=== PATIENT | female | born 1965 | race Caucasian/White ===

== ENCOUNTER 2019-09-13 05:55 | Day surgery (SDC) | payer BC ==
[~2019-09-13] VITALS: Ht 167.6 cm; Wt 101.6 kg
[2019-09-13] MEDS ORDERED: fentaNYL CITRATE/PF 100 MCG/2 ML AMP IVP ONE (07:55)
[2019-09-13] MEDS ORDERED: PROPOFOL 200MG/ 20ML VIAL (DIPRIVAN) IV ONE (07:55)
[2019-09-13] MEDS ORDERED: KETOROLAC TROMETHAMINE 30 MG VIAL IVP ONE (07:55)
[2019-09-13] MEDS ORDERED: LR 1,000 ML IV.SOLN IV ONE (07:55)
[2019-09-13] MEDS ORDERED: NS 1000 ML IV.SOLN IV ONE (07:55)
[2019-09-13] MEDS ORDERED: SEVOFLURANE 15 MIN GAS INH ONE (07:55)
[2019-09-13] MEDS ORDERED: MIDAZOLAM HCL 5 MG/5 ML VIAL IVP ONE (07:55)
[2019-09-13] MEDS ORDERED: ROCURONIUM BROMIDE 10 MG/ML (ZEMURON) IV ONE (07:55)
[2019-09-13] MEDS ORDERED: LR 1,000 ML IV SCH (08:20)
[2019-09-13] MEDS ORDERED: METOCLOPRAMIDE HCL 10 MG/2 ML VIAL IVP PRN (08:30)
[2019-09-13] MEDS ORDERED: MORPHINE 4 MG/ML INJ. SYRINGE IVP PRN ×3 (08:30)
[2019-09-13] MEDS ORDERED: OXYCODONE/ACETAMINOPHEN 5-325 TABLET PO PRN (09:00)
[2019-09-13] MEDS ORDERED: ONDANSETRON HCL 4 MG/2 ML VIAL IVP PRN (09:00)
[2019-09-13] MEDS ORDERED: HYDROcodone/ACETAMIN 5-325 MG TAB (NORCO/ VICODIN) PO PRN (09:00)
[2019-09-13] MEDS ORDERED: MORPHINE 4 MG/ML INJ. SYRINGE ONE (09:17)
[2019-09-13 09:44] VITALS: BP_SYST 116
[2019-09-13] MEDS ORDERED: OXYCODONE/ACETAMINOPHEN 5-325 TABLET ONE (10:20)
== END 2019-09-13 11:05 | disposition home or self-care (01) ==
LOC: SMU 05:55 → SDS 05:55
PROVIDERS: ATTEND Specialist
DX: N95.0 Postmenopausal bleeding (principal); C54.1 Malignant neoplasm of endometrium; E78.00 Pure hypercholesterolemia, unspecified; F32.9 Major depressive disorder, single episode, unspecified; E66.01 Morbid (severe) obesity due to excess calories; Z79.899 Other long term (current) drug therapy; Z98.890 Other specified postprocedural states; Z87.891 Personal history of nicotine dependence; Z90.49 Acquired absence of other specified parts of digestive tract
CPT/HCPCS: 58558; 88305; J1885; J2250; J2270; J2704; J3010; J7030; J7120

== ENCOUNTER 2023-01-05 11:23 | Emergency (ER) | payer BC ==
[~2023-01-05] VITALS: Ht 170.2 cm; Wt 101.6 kg
[2023-01-05 11:31] VITALS: BP_SYST 146
--- NOTE | 2023-01-05 11:38 | NUR ---
Patient triaged and placed in waiting room. VSS and patient appears in no acute distress at this time. Awaiting available bed, and MD notified of need for MSE.
--- NOTE | 2023-01-05 12:55 | NUR ---
ER at bedside examining patient.
[2023-01-05 13:05] LABS: ANION GAP 9 (5-15); BASOPHILS # (AUTO) 0.1 K/uL (0.0-0.2); BASOPHILS % (AUTO) 0.6 % (0.0-2.0); CALCIUM 8.8 mg/dL (8.4-11.0); CHLORIDE 104 mmol/L (98-107); CREATININE 0.63 mg/dL (0.55-1.30); EOSINOPHILS # (AUTO) 0.1 K/uL (0.0-0.4); EOSINOPHILS % (AUTO) 1.1 % (0.0-4.0); GFR AFRICAN AMERICAN 126 mL/min (>90); GLUCOSE 105 mg/dL (70-99); HEMATOCRIT 39.1 % (36-48); HEMOGLOBIN 13.2 g/dL (12.0-16.0); LYMPHOCYTES # (AUTO) 1.8 K/uL (1.0-5.5); LYMPHOCYTES % (AUTO) 22.7 % (20.5-51.5); MEAN CORPUSCULAR HEMOGLOBIN 29 pg (27-31); MEAN CORPUSCULAR HGB CONC 34 % (32-36); MEAN CORPUSCULAR VOLUME 85 fL (79.0-98.0); MONOCYTES # (AUTO) 0.6 K/uL (0.0-1.0); MONOCYTES % (AUTO) 6.9 % (1.7-9.3); NEUTROPHILS # (AUTO) 5.6 K/uL (1.8-7.7); NEUTROPHILS % (AUTO) 68.7 % (40.0-70.0); PLATELET COUNT (AUTO) 117 K/uL (130-430); RED CELL DISTRIBUTION WIDTH 12.8 % (9.0-15.0); UREA NITROGEN, BLOOD 14 mg/dL (8-21); WHITE BLOOD COUNT (AUTO) 8.1 K/uL (4.8-10.8)
[2023-01-05 13:09] LABS: ALANINE AMINOTRANSFERASE 35 U/L (12-78); ALBUMIN 3.7 g/dL (3.4-4.8); AMYLASE 19 U/L (0-100); ASPARTATE AMINOTRANSFERASE 18 U/L (10-37); C-REACTIVE PROTEIN QUANT < 0.2 mg/dL (0-0.5); LACTATE DEHYDROGENASE 140 U/L (81-234); LIPASE 102 U/L (73-393); TOTAL BILIRUBIN 0.4 mg/dL (0.0-1.0)
[2023-01-05 13:46] LABS: ACETONE, SERUM NEGATIVE (NEGATIVE)
--- NOTE | 2023-01-05 14:00 | NUR ---
Patient BIB self from home. Chief Complaint: pelvic pain n/d x3w denies vomiting. Patient a&ox4 and stable. Patient placed on monitor with bed rails up.
--- NOTE | 2023-01-05 14:00 | NUR ---
Urine taken to lab
[2023-01-05 14:13] LABS: BILIRUBIN,URINE NEGATIVE (NEGATIVE); BLOOD, URINE NEGATIVE (NEGATIVE); CLARITY/URINE CLEAR (CLEAR); COLOR,URINE YELLOW (YELLOW); GLUCOSE,URINE NEGATIVE (NEGATIVE); KETONES,URINE NEGATIVE (NEGATIVE); LEUKOCYTE ESTERASE ,URINE NEGATIVE (NEGATIVE); NITRITE, URINE NEGATIVE (NEGATIVE); PH,URINE 5.5 (5.0-8.0); PROTEIN URINE NEGATIVE (NEGATIVE); UROBILINOGEN,URINE 0.2 (0.2-1.0)
[2023-01-05] MEDS ORDERED: TRAM50TA2 PO (14:26)
[2023-01-05 15:07] VITALS: BP_SYST 139
--- NOTE | 2023-01-05 15:07 | NUR ---
Patient given written and verbal discharge instructions and verbalizes understanding. ER MD Epstein discussed with patient the results and treatment provided. Patient in stable condition. ID arm band removed. Rx of Tramadol sent to [facility] on file. Patient educated on pain management and to follow up with PMD. Opportunity for questions provided and answered. Patient provided detailed instructions on follow up for care of dx. Patient verbalized understanding.
== END 2023-01-05 15:07 | disposition home or self-care (01) ==
LOC: SED 11:23
DX: R10.30 Lower abdominal pain, unspecified (principal); Z79.899 Other long term (current) drug therapy
CPT/HCPCS: 36415; 76376; 80053; 81003; 82009; 82150; 83605; 83615; 83690; 84703; 85025; 86140; 99284